=== PATIENT | female | born 1980 | race Caucasian/White ===

== ENCOUNTER → 2024-01-27 | Outpatient (CLI) | payer BC | LOC: MC.RAD 12:45 | DX: Z12.31 Encounter for screening mammogram for malignant neoplasm of breast (principal) ==

== ENCOUNTER → 2024-02-25 | Outpatient (CLI) | payer BC ==
[~2024-02-25] MED LIST: Iohexol 300 - 100 ML VIAL IV ONE
== END ==
LOC: COL.RAD 12:58
DX: N97.9 Female infertility, unspecified (principal)
CPT/HCPCS: Q9967